=== PATIENT | male | born 1985 | race Two or more races ===

== ENCOUNTER 2024-06-23 02:13 | Emergency (ER) | payer MEDICAID, SELFPAY ==
--- NOTE | 2024-06-23 02:22 | EKG_ITS ---
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
[2024-06-23 02:27] VITALS: BP 151/92; PULSE 78; RESP 18; TEMP 36.7; O2SAT 98; BMI 32.5
--- NOTE | 2024-06-23 02:27 | XR_ITS ---
Examination: CT brain head without contrast. 2-D sagittal coronal reconstructions Date and time of exam: June 23, 2024 0239 hrs. Indications: Syncopal episode with loss of consciousness, patient fell and hit head 2 hours ago, head pain CTDI: vol (mGy):58 DLP: (mGycm):1187 Technique: Multiple CT axial sections of the brain have been obtained, 5 mm slice thickness. Contrast has not been administered. 2-D sagittal, coronal reconstructions have been obtained Low dose protocols were performed. One or more of the following dose reduction techniques were used; automated exposure control, adjustment of the mA and/or KV according to patient size, use of iterative reconstruction technique. Findings: No significant ventricular enlargement. Intra-axial or extra-axial hemorrhage density is not seen. No mass effect or midline shift Basal cisterns are not remarkable. Fourth ventricle is midline. Cranial vault intact. Impression: Negative for acute hemorrhage, mass effect or midline shift
--- NOTE | 2024-06-23 02:27 | PD.EDRME ---
Rapid Medical Screening Exam RME Arrival date/time: 06/23/24 02:13 39 year old male present to ED for c/o of syncope/head injury today I have greeted and performed a focused initial assessment of this patient. A comprehensive ED assessment and evaluation of the patient, analysis of all test results, and completion of the medical decision making process will be conducted by additional ED providers. Chief Complaint: General Adult/Misc Complain Time Seen by Provider: 06/23/24 02:26
[2024-06-23 03:15] LABS: Basophils # (Auto) 0.1 Thou/mm3 (0.0-0.2); Basophils % (Auto) 1 % (0-2.5); Eosinophils # (Auto) 0.4 Thou/mm3 (0.0-0.5); Eosinophils % (Auto) 6 % (0-10); Hematocrit 45.3 % (41.0-53.0); Hemoglobin 15.8 g/dL (13.5-16.0); Immature Granulocytes % (Auto) 0 % (0-0); Immature Granulocytes Auto 0.01 Thou/mm3 (0.00-0.00); Lymphocytes # (Auto) 2.3 Thou/mm3 (1.0-4.8); Lymphocytes % (Auto) 36 % (10-50); Mean Corpuscular HGB Conc 34.9 g/dl (31.0-37.0); Mean Corpuscular Hemoglobin 32.5 pg (25.0-35.0); Mean Corpuscular Volume 93 fL (80-100); Monocytes # (Auto) 0.6 Thou/mm3 (0.0-0.8); Monocytes % (Auto) 10 % (0-12); Neutrophils # (Auto) 3.1 Thou/mm3 (1.8-7.7); Neutrophils % (Auto) 48 % (37-80); Nucleated Red Blood Cell % 0 /100 WBC (0); Platelet Count 243 Thou/mm3 (140-440); RDW Standard Deviation 40.7 fL (35.1-43.9); Red Blood Count 4.86 Miln/mm3 (4.50-5.90); White Blood Count 6.5 Thou/mm3 (3.8-10.6)
[2024-06-23 03:29] LABS: Prothrombin Time 10.6 Seconds (9.0-12.2)
[2024-06-23 03:35] LABS: Alanine Aminotransferase 68 U/L (10-49); Albumin, Serum 4.7 gm/dL (3.5-5.0); Albumin/Globulin Ratio 1.7 (1.2-2.2); Alkaline Phosphatase 152 U/L (46-116); Anion Gap 9 (7-16); Aspartate Amino Transferase 41 U/L (0-34); BUN/Creatinine Ratio 10 Ratio (12-20); Bilirubin,Total 0.2 mg/dL (0.3-1.2); Blood Urea Nitrogen 13 mg/dL (9-23); Calcium 9.1 mg/dL (8.3-10.6); Calcium (Corrected) 9.1 mg/dL (8.5-10.1); Carbon Dioxide 26.5 mMol/L (20.0-31.0); Chloride 103 mMol/L (98-107); Creatinine (Component) 1.3 mg/dL (0.6-1.3); Globulin 2.8 gm/dL (2.3-3.5); Glucose 144 mg/dL (74-106); Osmolality,Calculated 278 (275-295); Potassium 3.9 mMol/L (3.4-5.1); Sodium 138 mMol/L (136-145); Total Protein 7.5 gm/dL (5.7-8.2); Troponin I < 0.020 ng/mL (0.0-0.045); eGFR > 60 See Note
--- NOTE | 2024-06-23 03:47 | PRELIM_ITS ---
CT scan of the head without intravenous contrast (axial sections with sagittal and coronal reformats) June 23, 2024 0239 hours Clinical History: head injury/syncope episode Comparison: No prior stud y is available for comparison. Findings:No evidence of intracranial hemorrhage, mass effect or midlin e shift. The ventricles and CSF spaces are unremarkable. The calvarium is intact. There is mild mucos al thickening in the left maxillary sinus The mastoid air cells are clear.Impression:No evidence of intracranial hemorrhage, midline shift or calvarial fracture.Other findings as described above. Repo rt Electronically Signed By: Bee Gaspar 06/23/2024 3:46:18 AM [EST]
[2024-06-23 04:23] VITALS: BP 129/76; PULSE 76; RESP 20; O2SAT 95
[2024-06-23 04:26] VITALS: TEMP 37
[2024-06-23 06:07] VITALS: BP 137/89; PULSE 79; RESP 17; TEMP 36.9; O2SAT 98
--- NOTE | 2024-06-23 06:30 | PD.EDADULT ---
ED General RME/HPI General Chief complaint: General Adult/Misc Complain Stated complaint: PASSED OUT Time Seen by Provider: 06/23/24 02:26 Arrival date/time: 06/23/24 02:13 RME / HPI RME / HPI narrative: 06/23/24 02:13 RME: 39 year old male present to ED for c/o of syncope/head injury today VIDYA HPI: 39-year-old male otherwise healthy who arrived home late last night after visiting his daughter, where he went quickly to the restroom upon arriving home and had a syncopal episode. He denies any preceding symptoms such as headache, vertigo, dizziness, chest pain, palpitations, or shortness of breath. Family members were in the room waking him up and he woke up immediately. There was no seizure-like activity. He currently has no complaints. There is no witnessed head injury, but is worried he hit his head . He does not have a primary care provider nor goes to the community clinics. He denies drugs. Last alcohol was yesterday at lunch, 1-2 beers. Related Data Previous Rx's ?Medication ?Instructions ?Recorded ibuprofen 800 mg tablet 800 mg PO TID PRN pain #30 tabs 09/05/22 Allergies Allergy/AdvReac Type Severity Reaction Status Date / Time No Known Allergies Allergy Verified 06/23/24 02:15 Review of Systems Review of Systems Systems Reviewed: All systems reviewed, normal except as documented ED Exam Narrative Physical exam: GENERAL APPEARANCE: AxOx4, generally well-appearing, no acute distress. HEENT: NC, AT. MMM. EOMI, clear conjunctiva, oropharynx clear. NECK: Supple without lymphadenopathy. No stiffness or restricted ROM. HEART: Normal rate and regular rhythm, normal S1/S1, no m/r/g LUNGS: CTAB, moving air well. No crackles or wheezes are heard. ABDOMEN: Soft, nontender, nondistended with good bowel sounds heard. BACK: No midline C/T/L spine pain or deformity, No CVAT, no obvious deformity. EXTREMITIES: Without cyanosis, clubbing or edema. MUSCULOSKELETAL: FROM of all major joints, no chest tenderness NEUROLOGICAL: Grossly nonfocal. Alert and oriented, moving all 4 extremities. CN not formally tested but appear grossly intact. Observed to ambulate with normal gait. Skin: Warm and dry without any rash. Course Quality Measures none Orders Category Date Time Status EKG (ED ONLY) *Do not use* NOW Care 06/23/24 02:[address] head/brain wo con Stat Exams 06/23/24 02:27 Taken EKG (ED Only) Stat Exams 06/23/24 02:22 Draft CBC Stat Lab 06/23/24 02:55 Completed CMP [Comprehensive Metabolic Panel] Stat Lab 06/23/24 02:55 Completed INR [Prothrombin Time with INR] Stat Lab 06/23/24 02:55 Completed Troponin I Stat Lab 06/23/24 02:55 Completed Vital Signs Vital signs: Vital Signs Temperature 98.1 F 06/23/24 02:27 Pulse Rate 78 06/23/24 02:27 Respiratory Rate 18 06/23/24 02:27 Blood Pressure 151/92 H 06/23/24 02:27 Pulse Oximetry (%) 98 06/23/24 02:27 Oxygen Delivery Method Room Air 06/23/24 02:27 SpO2 98% on room air, not hypoxic Procedures -ED EKG Interpretation #1: Date of EK06/23/24 Time of EK:34 Rate: 72 Interpretation: Interpreted by me EKG Impression: Normal sinus rhythm, No acute ST-T changes, Normal intervals and Normal axis MDM Patient data External records reviewed:: [facility] previous records Clinical information provided by:: patient and spouse Social determinants that could affect healthcare access:: none Patient has the following chronic illnesses:: None How is presenting disease/condition affected by chronic disease/condition?: no chronic disease Evaluation data The following diagnostics were reviewed and interpreted by me:: lab results, radiology exam(s) and EKG tracing(s) Lab and/or radiology exams considered but not ordered:: None Interpretation Summary: As per narrative Medications Medications considered but not ordered:: None Medication administrations:: None Consultations Consultation(s) initiated? (list below): No Diagnosis Differential Diagnosis ED Complaint MDM: Syncope, vasovagal episode, palpitations, seizure, dehydration Most likely diagnosis given after review of the tests above:: See below Admission Indicated Admission indicated?: not indicated Explain why admission is indicated or not indicated:: As per narrative Admission Request Was there a request for admission?: No Disposition Plan Disposition Plan: Discharge Discharge Attestation Discharge Attestation: The patient and all family members were given an opportunity to ask questions and understood the discharge instructions. Discharge instructions specifically effects, indications for sooner follow up or return to the emergency department, and the expected course of current diagnosis. Patient condition: Stable Medical Decision Making MDM Narrative MDM Narrative: Mr. Ashley is a clinically well-appearing gentleman, who presents with an unprovoked syncopal episode. There were no associated symptoms around this to further narrow down the several possibilities that would have caused this episode. History with the does not suggest seizure-like activity. Of note this was a return trip, and late at night for him. He describes this as later than usual. There could have been a vasovagal component as he just finished urinating. EKG shows no acute findings. Laboratory testing sent via the RME process shows no acute findings and significant for normal electrolytes, and normal creatinine. Troponin was normal. Head CT ordered via the RME process on my interpretation shows no acute intracerebral findings. I reviewed the radiology interpretation and agree. Differential Diagnosis Differential Diagnosis: Syncope, vasovagal episode, palpitations, seizure, dehydration Lab Data 06/23/24 02:55 06/23/24 02:55 Labs: Lab Results 06/23/24 Range/Units 02:55 WBC 6.5 (3.8-10.6) Thou/mm3 RBC 4.86 (4.50-5.90) Miln/mm3 Hgb 15.8 (13.5-16.0) g/dL Hct 45.3 (41.0-53.0) % MCV 93 (80-100) fL MCH 32.5 (25.0-35.0) pg MCHC 34.9 (31.0-37.0) g/dl RDW Std Deviation 40.7 (35.1-43.9) fL Plt Count 243 (140-440) Thou/mm3 Neut % (Auto) 48 (37-80) % Lymph % (Auto) 36 (10-50) % Haskell % (Auto) 10 (0-12) % Eos % (Auto) 6 (0-10) % Baso % (Auto) 1 (0-2.5) % Neut # (Auto) 3.1 (1.8-7.7) Thou/mm3 Lymph # (Auto) 2.3 (1.0-4.8) Thou/mm3 Haskell # (Auto) 0.6 (0.0-0.8) Thou/mm3 Eos # (Auto) 0.4 (0.0-0.5) Thou/mm3 Baso # (Auto) 0.1 (0.0-0.2) Thou/mm3 Immature Gran # (Auto) 0.01 H (0.00-0.00) Thou/mm3 Absolute Nucleated RBC 0.00 (0.00-0.00) Thou/mm3 Immature Gran % 0 (0-0) % Nucleated RBC % 0 (0) /100 WBC PT 10.6 (9.0-12.2) Seconds INR 1.0 (0.9-1.3) Sodium 138 (136-145) mMol/L Potassium 3.9 (3.4-5.1) mMol/L Chloride 103 (98-107) mMol/L Carbon Dioxide 26.5 (20.0-31.0) mMol/L Anion Gap 9 (7-16) BUN 13 (9-23) mg/dL Creatinine 1.3 (0.6-1.3) mg/dL Estim Creat Clear Calc 88.0 (>60) mL/min eGFR > 60 (60 - ) See Note BUN/Creatinine Ratio 10 L (12-20) Ratio Glucose 144 H (74-106) mg/dL Calculated Osmolality 278 (275-295) Calcium 9.1 (8.3-10.6) mg/dL Corrected Calcium 9.1 (8.5-10.1) mg/dL Total Bilirubin 0.2 L (0.3-1.2) mg/dL AST 41 H (0-34) U/L ALT 68 H (10-49) U/L Alkaline Phosphatase 152 H (46-116) U/L Troponin I < 0.020 (0.0-0.045) ng/mL Total Protein 7.5 (5.7-8.2) gm/dL Albumin 4.7 (3.5-5.0) gm/dL Globulin 2.8 (2.3-3.5) gm/dL Albumin/Globulin Ratio 1.7 (1.2-2.2) Discharge Plan Plan Patient Disposition: HOME (Self Care) Prescriptions/Referrals Prescriptions/Med Rec: No Action ibuprofen 800 mg tablet 800 mg PO TID PRN (Reason: pain) Qty: 30 0RF Referrals: No Primary/Family,Physician [Primary Care Provider] - In 1 week [facility] [Provider Group] - In [address] [facility] [Provider Group] - In [address] [facility] [Outside] - In 1 week Problem List Clinical Impression: Syncope Patient/Caregiver Discharge Instructions Education Materials: ED Fainting, Uncertain Cause Additional Instructions: Follow-up with your primary care doctor in 2 to 3 days for recheck. If you do not have a primary care provider, resources have been included in these discharge papers. You can return to the emergency department sooner if symptoms worsen or if you notice any new, concerning issues. Print Language: Welsh Stand Alone Forms: Janay Award Info., Patient Portal Info Letter
[2024-06-23 06:48] VITALS: BP 125/84; PULSE 86; RESP 20; TEMP 36.7; O2SAT 95
== END 2024-06-23 06:48 | disposition home or self-care (01) ==
PROVIDERS: Physician Assistant; Emergency Provider Emergency Medicine
DX: R55 Syncope and collapse (principal)
CPT/HCPCS: 36415; 70450; 80053; 84484; 85025; 85610; 93005; 99284